=== PATIENT | male | born 1965 | race Asian ===

== ENCOUNTER 2025-06-22 08:38 | Outpatient (CLI) | payer MEDICAID, SELFPAY ==
[2025-06-21 14:47] VITALS: BMI 19.0
[2025-06-22] VITALS (12 sets, daily range): BP systolic 109–129; BP diastolic 61–80; PULSE 63–80; RESP 13–20; TEMP 36.6–36.9; O2SAT 96–100
[2025-06-22 07:31] LABS: Basophils # (Auto) 0.0 Thou/mm3 (0.0-0.2); Basophils % (Auto) 1 % (0-2.5); Eosinophils # (Auto) 0.1 Thou/mm3 (0.0-0.5); Eosinophils % (Auto) 2 % (0-10); Hematocrit 38.2 % (41.0-53.0); Hemoglobin 12.2 g/dL (13.5-16.0); Immature Granulocytes Auto 0.04 Thou/mm3 (0.00-0.00); Lymphocytes # (Auto) 1.5 Thou/mm3 (1.0-4.8); Lymphocytes % (Auto) 22 % (10-50); Mean Corpuscular HGB Conc 31.9 g/dl (31.0-37.0); Mean Corpuscular Hemoglobin 27.1 pg (25.0-35.0); Mean Corpuscular Volume 85 fL (80-100); Monocytes # (Auto) 0.6 Thou/mm3 (0.0-0.8); Monocytes % (Auto) 8 % (0-12); Neutrophils # (Auto) 4.6 Thou/mm3 (1.8-7.7); Neutrophils % (Auto) 66 % (37-80); Nucleated Red Blood Cell # 0.00 Thou/mm3 (0.00-0.00); Nucleated Red Blood Cell % 0 /100 WBC (0); Platelet Count 301 Thou/mm3 (140-440); RDW Standard Deviation 49.2 fL (35.1-43.9); Red Blood Count 4.50 Miln/mm3 (4.50-5.90); White Blood Count 6.9 Thou/mm3 (3.8-10.6)
[2025-06-22 07:45] LABS: Blood Urea Nitrogen 8 mg/dL (9-23); Creatinine (Component) 0.6 mg/dL (0.6-1.3); Estimated Creatinine Clearance 89.5 mL/min (>60); eGFR > 60 See Note
[2025-06-22 08:04] LABS: INR 0.9 (0.9-1.3); Partial Thromboplastin Time 28.9 Seconds (22.0-36.0); Prothrombin Time 10.2 Seconds (9.0-12.2)
--- NOTE | 2025-06-22 09:30 | XR_ITS ---
Examination: IR venous access implantation Port-A-Cath Ultrasound-guided needle placement right internal jugular vein. Fluoroscopy AP Chest, portable single view Exam date and time: June 22, 2025 1023 hours INDICATIONS: Diagnosis malignant neoplasm colon, need for long-term intravenous antibiotic therapy. Informed consent provided Technique: A timeout was completed, verifying correct patient, procedure, site, positioning, and special equipment if applicable The patient was placed in a dependent position appropriate for central line placement based on the vein to be cannulated. The patient's right neck was prepped and draped in sterile fashion. Maximum Sterile Barrier Technique used including cap, mask, sterile gown, sterile gloves, and sterile full body drape. If ultrasound technique used: sterile gel and sterile probe covers. Hand Hygiene performed using proper scrub, soap and water, or alcohol-based hand rub. Site right portable apparatus utilized to confirm patency of the right internal jugular vein, a utilizing ultrasonographic guidance successful 21-gauge needle puncture into the right internal jugular vein Ultrasound images were recorded and stored. Successful micropuncture with a 21-gauge needle was performed. 0.18 wire guide was introduced into the IVC under fluoroscopic guidance. The wires is then exchanged for a 0.25 J-wire guide placed in the vena cava. Blunt dissection utilized for formation of a subcutaneous pocket for placement of the Port-A-Cath reservoir Port-A-Cath reservoir connected to a 24 cm 8 Georgian line placed through the sheath into the superior vena cava in proper position Port-A-Cath incision site sutured The attending radiologist was present for the entire procedure Estimated blood loss4 cc. Findings: Under fluoroscopy, the tip of the Port-A-Cath is in good position in the vena cava. Portable chest x-ray, post Port-A-Cath placement, as ordered. Impression: Successful ultrasound-guided needle placement right internal jugular vein. Successful venous access Port-A-Cath implantation Fluoroscopy 0.1 minute radiation dose 0.48 milligray 1 spot fluoroscopic chest film AP portable chest completion procedure demonstrates satisfactory position Port-A-Cath tip SVC. May use Port-A-Cath
[2025-06-22] MEDS: SODIUM CHLORIDE 0.9% 500 ML 500 ML 20 ML IV (10:30)
[2025-06-22] MEDS: ceFAZolin/D5W 1 GM IVPB 1 GM/50 ML BAG IV (10:45)
[2025-06-22] MEDS: fentaNYL CIT INJ 50 mCg/ML AMP 2ML 125 MCG IVP (11:05)
[2025-06-22] MEDS: HEPARIN SOD LOCK SYR 100 UNIT/ML 500 UNIT STFIELD (11:07)
[2025-06-22] MEDS: LIDOCAINE INJ PF 1% 30 ML VIAL 8 ML INFL (11:07)
[2025-06-22] MEDS: LIDOCAINE 1% W/EPI 1:100K 20 ML VIAL 7 ML INFL (11:07)
--- NOTE | 2025-06-22 12:48 | PC.NURSE ---
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 1239 patient is awake, alert, breathing unlabored, dressing dry wiht no bleeding, patient able to ambulate to bathroom and void, able to tolerate food tray with no nausea or vomiting, meets discharge criteria, discharge instructions given to patient and son Scar, patient discharged home in wheelchair with all belongings.
== END 2025-06-22 12:39 | disposition home or self-care (01) ==
PROVIDERS: Radiology Diagnostic Radiology; Referring Provider Internal Medicine Hematology & Oncology; Visit Provider Internal Medicine Hematology & Oncology
DX: C20 Malignant neoplasm of rectum (principal); Z01.812 Encounter for preprocedural laboratory examination
CPT/HCPCS: 36558; 36415; 76937; 77001; 82565; 84520; 85025; 85610; 85730; C1769; C1788; C1894; J0689; J0690; J1642; J3010; J3490; J7050; J7999

== ENCOUNTER 2025-07-09 08:56 | Outpatient (RCR) | payer MEDICAID, SELFPAY ==
--- NOTE | 2025-06-17 15:40 | CTCCONSULT_ITS ---
[facility] [address] [place], [place] [address] Consultation Note Date: 06/17/2025 MR#: [id number] Name: MARY ANTONIO : 1965 Dx: C20 Malignant neoplasm of rectum Referring physician. Rui Rangel MD Reason for consultation. Patient with colorectal CA referred for neoadjuvant treatments History of Present Illness Patient is a 59-year-old male with change in bowel habits and rectal bleeding underwent colonoscopy 04/22/2025 with diagnosis of well-differentiated adenocarcinoma with no deficiency of mismatch repair protein. On 05/02/2025 patient underwent diverting loop colostomy and open polypectomy of a polyp which was benign. PET/CT 05/26/2025 at [facility] revealed uptake in the rectum consistent with known primary cancer SUV of 12.21 otherwise no evidence of mets in the pelvis or at distant sites. Past Medical History: Denies other than above Family history. Father had colon cancer in his 80s Social History: Patient current smoker occasional alcohol use Review of Systems: Has had blood in bowel movement pain in abdomen weight loss sleep problem Physical Exam: General: Adequate nourished. Gentleman in no acute distress HEENT: Atraumatic normocephalic extraocular is intact no oral lesion no cervical or supraclavicular adenopathy apathy CV: Chest clear to station heart regular rate and rhythm ABD: Colostomy bag noted functioning well EXT: No signs clubbing or edema Assessment: 1. Patient with colorectal cancer status post diverting loop colostomy 2. Scheduled for neoadjuvant chemoradiation. PET scan shows no regional or distant mets 3. Told the radiation therapy at appropriate time approximately 5000 cGy to the tumor bed and adjacent node bearing sites. VMAT for maximum sparing uninvolved pelvic structures will be employed 4. Thank you very much for allow me to evaluate and manage this patient Cc: Rui Rangel MD Electronically signed by: Laci Quinonez MD, DABR 06/17/2025 3:38 PM
--- NOTE | 2025-06-17 15:43 | CTCTXPLN_ITS ---
[facility] [address] [place], [place] [address] Physician Clinical Treatment Planning Note Date of Service: 06/17/2025 Name: MARY ANTONIO : 1965 The patient has agreed to proceed with Radiation therapy. Tests and supporting medical records were interpreted to assist in defining the tumor location and extent of disease. Further imaging will be necessary to contour and delineate the volume to which the XRT will be provided. A. Treatment Intent: Curative B. Modality: 15 MV C. Requested Technique: VMAT D. Treatment Site: Pelvis E. Critical structures to be contoured on plan: F. In order to accomplish this plan, I am ordering/Prescribing the followin. Simulations (s) will be performed to accomplish a reproducible treatment position, to determine optimal treatment portals/beam arrangements, to design beam modifying devices and verify treatment portals on patient prior to the commencement of Radiation Therapy. Pelvis 2. Devices; for immobilization and beam shaping: Vac-Lena 3. CT Guidance for placement of XRT tony Scan area: 4. Portal images Frequency: 5. Invivo transit dose measurement once per week on all VMAT patients. 6. Special Physics Consult Requested for: 7. Other requests: Special procedure chemoradiation G. Dose Objectives: Curative Electronically signed by: Laci Quinonez M.D. 06/17/2025 3:41 PM
--- NOTE | 2025-06-17 15:45 | CTCTXPLNST_ITS ---
Radiation Oncology Treatment Planning Sheet Name: MARY ANTONIO MR#: [id number] : 1965 Dx: C20 Malignant neoplasm of rectum Date of Service: 06/17/2025 Account #: ?? Pt Treatment Intent: curative palliative other: Stage: Procedure CPT # Ordered Spec. Procedure 56474 1 Mondragon Complex (set-up) 35383 pelvis 1 Mondragon Simple 51414 IMRT Plan 91104 1 MLC Devices VMAT 11173 3 Mondragon 3 D 86638 TRTMT dev Complex 63677 Pelvis 1 TRTMT dev simple 20652 Basic Murtaza 78266 9 Special Dosimetry 06723 Spec Physics 98277 Port Films 96124 SRS Cranial/1FX 06801 SBR 5 FX or Less /ex: 5 = 5 fx 22569 IMRT Simple 00908 5000 25 IMRT Complex 15362 IGRT 36633 25 Rad del com 6-10 58101 Rad del com 11-19 09857 Cont Med Physics 80328 5 Treatment Planning 36605 1 Rad del com 20 mev 47814 Rad del inter 6-10 73265 Rad del inter 11- 21913 Rad del simple 6-10 94002 Rad del simple 11-19 26095 Special Port Plan 66178 TRTMT dev inter 19199 Isodose Complex 38135 Isodose simple 28556 Resp Motion Mgmt Simulation 92019 Placement of Fiducial Markers 68959 Electronically Signed By: Laci Quinonez MD, DABR 06/17/2025 3:43 PM
== END 2025-07-11 23:59 | disposition home or self-care (01) ==
LOC: SCTC 08:56
PROVIDERS: Referring Provider Internal Medicine Hematology & Oncology; Visit Provider Radiology Therapeutic Radiology
DX: Z51.0 Encounter for antineoplastic radiation therapy (principal); C20 Malignant neoplasm of rectum
CPT/HCPCS: 77014; 77290; 77300; 77301; 77334; 77338; 77385; 77470; 99213; G0463

== ENCOUNTER 2025-08-10 08:52 | Outpatient (RCR) | payer MEDICAID, SELFPAY ==
--- NOTE | 2025-07-13 11:02 | CTCTRTNOTE_ITS ---
[facility] [address], [place] [address] Weekly Management Date: 07/13/2025 ?? Name: MARY VIEYRAO.B.: 1965 A. Patient is currently at 800 cGy. B. Patient is tolerating treatment well. C. Resume radiation therapy. Electronically signed by: Laci Quinonez M.D. 07/13/2025 11:00 AM
== END 2025-08-10 23:59 | disposition home or self-care (01) ==
LOC: SCTC 08:52
PROVIDERS: Referring Provider Radiology Therapeutic Radiology; Visit Provider Radiology Therapeutic Radiology
DX: Z51.0 Encounter for antineoplastic radiation therapy (principal); C19 Malignant neoplasm of rectosigmoid junction; Z93.3 Colostomy status
CPT/HCPCS: 77336; 77385

== ENCOUNTER 2025-08-25 08:22 | Outpatient (RCR) | payer MEDICAID, SELFPAY | END 2025-09-10 23:59 | disposition home or self-care (01) | LOC: SCTC 08:22 | PROVIDERS: Referring Provider Radiology Therapeutic Radiology; Visit Provider Radiology Therapeutic Radiology | DX: Z51.0 Encounter for antineoplastic radiation therapy (principal); C20 Malignant neoplasm of rectum | CPT/HCPCS: 77385; 99212; G0463 ==